=== PATIENT | female | born 1985 | race Caucasian/White ===

== ENCOUNTER 2017-01-29 20:54 | Emergency (ER) | payer SELFPAY ==
[~2017-01-29] VITALS: Ht 157.5 cm; Wt 90.2 kg
[2017-01-29 22:13] LABS: HEMOGLOBIN. 12.3 g/dL (12.0-16.0); MEAN CORPUSCULAR HEMOGLOBIN 27.4 pg (28.0-32.0); MEAN CORPUSCULAR HGB CONC 34.2 g/dL (31.0-37.0); MEAN CORPUSCULAR VOLUME 80.2 fL (81.0-99.0); MEAN PLATELET VOLUME 8.9 fl (7.4-10.4); PLATELET 290 x1000/uL (130-400); RED BLOOD CELL COUNT 4.48 mill/uL (4.2-5.4); RED CELL DISTRIBUTION WIDTH 14.6 % (11.6-14.6); WHITE BLOOD COUNT 10.8 x1000/uL (4.5-11.0)
[2017-01-29 22:20] LABS: INR 1.2; PARTIAL THROMBOPLASTIN TIME 29.9 sec (24.0-34.0); PROTHROMBIN TIME 12.7 sec
[2017-01-29] MEDS: ONDANSETRON HCL 4MG/2ML VIAL IV STA (22:24)
[2017-01-29] MEDS: ACETAMINOPHEN 325MG TABLET PO ONE (22:24)
[2017-01-29] MEDS: SODIUM CHLORIDE 0.9% 1,000 ML IV ONE (22:24)
[2017-01-29] MEDS: KETOROLAC 30MG/ML VIAL IV STA (22:24)
[2017-01-29] MEDS: DEXAMETHASONE 10MG/ML 1ML VIAL IV ONE (22:24)
[2017-01-29] MEDS: PIPERACILLIN/TAZ 3.375G PREMIX 50 ML IV ONE (22:24)
[2017-01-29 22:27] LABS: DIFFERENTIAL COMMENT 1
[2017-01-29 22:30] LABS: ALANINE AMINOTRANSFERASE 86 IU/L (13-61); ALBUMIN 3.5 g/dL (3.4-5.0); ANION GAP 14; CALCIUM 8.7 mg/dL (8.5-10.1); CARBON DIOXIDE 24 mEq/L (21-32); CHLORIDE 99 mEq/L (98-107); INDEX HEMOLYSI 2 (1-3); INDEX ICTERIC 1 (1-4); INDEX LIPEMIC 1 (1-3); LIPASE 193 IU/L (73-393); TROPONIN I < 0.02 ng/mL (0.00-0.04); UREA NITROGEN BLOOD 12 mg/dL (7-21); eGFR > 60 mL/min (>60)
[2017-01-29 22:36] LABS: THYROID STIMULATING HORMONE 0.36 uIU/mL (0.36-3.74)
[2017-01-29 22:40] LABS: LACTIC ACID 2.1 mmol/L (0.4-2.0)
[2017-01-29 22:58] LABS: PLATELET ESTIMATE NORMAL
[2017-01-29 22:59] LABS: HCG SCREEN NEGATIVE
[2017-01-30] VITALS: BP 106/56
== END 2017-01-30 01:30 | disposition home or self-care (01) ==
LOC: ER 20:55
DX: J02.9 Acute pharyngitis, unspecified (principal); E86.0 Dehydration; R50.9 Fever, unspecified
CPT/HCPCS: 36415; 71010; 80053; 83605; 83690; 84443; 84484; 84703; 85025; 85610; 85730; 87040; 87804; 93005; 96365; 96366; 96375; 99285; J1100; J1885; J2405; J2543; J7030; Z7610